=== PATIENT | female | born 1995 | race Caucasian/White ===

== ENCOUNTER 2017-11-18 08:07 | Emergency (ER) | payer OTHER, SELFPAY ==
--- NOTE | 2017-11-18 08:35 | ER ---
Nurse's Notes [facility] Name: Cecelia Coon Age: 22 yrs Sex: Female : 1995 Arrival Date: 11/18/2017 Time: 08:11 Bed 19 Private MD: None, None Diagnosis: Dental caries, unspecified;Periapical abscess without sinus Presentation: 11/18 08:15 Presenting complaint: Patient states: toothache since last night and swelling to left aa5 jaw since this morning. Pt states "I took Ibuprofen 800 mg and some Amoxicillins yesterday". 08:15 Transition of care: patient was not received from another setting of care. Onset of aa5 symptoms was November 18, 2017. Risk Assessment: Do you want to hurt yourself or someone else? Patient reports no desire to harm self or others. Initial Sepsis Screen: Does the patient meet any 2 criteria? No. Patient's initial sepsis screen is negative. Does the patient have a suspected source of infection? No. Patient's initial sepsis screen is negative. Care prior to arrival: None. 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 - Social history:: Smoking status: Patient/guardian denies using tobacco. - Ebola Screening: : Patient denies travel to an Ebola-affected area in the 21 days before illness onset. Screenin:21 Abuse screen: Denies threats or abuse. Nutritional screening: No deficits noted. tw2 Tuberculosis screening: No symptoms or risk factors identified. Fall Risk None identified. Assessment: 08:20 General: Appears uncomfortable, Behavior is calm, cooperative. Pain: Complains of pain aa5 in left jaw Pain does not radiate. Pain currently is 8 out of 10 on a pain scale. Quality of pain is described as pulsating, Pain began 1 day ago. Is continuous. Neuro: Level of Consciousness is awake, alert, obeys commands, Oriented to person, place, time, situation. Cardiovascular: Heart tones S1 S2 present Rhythm is regular. Respiratory: Airway is patent Respiratory effort is even, unlabored, Respiratory pattern is regular, symmetrical. GI: No signs and/or symptoms were reported involving the gastrointestinal system. : No signs and/or symptoms were reported regarding the genitourinary system. EENT: Reports left lower tooth pain . Derm: Skin is pink, warm \\T\\ dry. Musculoskeletal: Range of motion: intact in all extremities. 09:00 Reassessment: Patient is alert, oriented x 3, equal unlabored respirations, skin aa5 warm/dry/pink. Vital Signs: 08:15 BP 133 / 96; Pulse 71; Resp 18 S; Temp 99.1(O); Pulse Ox 98% on R/A; Weight 83.91 kg aa5 (R); Height 5 ft. 4 in. (162.56 cm) (R); Pain 8/10; 09:00 BP 132 / 92; Pulse 70; Resp 16 S; Pulse Ox 99% on R/A; Pain 8/10; aa5 08:15 Body Mass Index 31.75 (83.91 kg, 162.56 cm) aa5 ED Course: 08:11 Patient arrived in ED. mr 08:11 None, None is Private Physician. mr 08:15 Arm band placed on. aa5 08:17 Archana Lancaster, VERO is Primary Nurse. aa5 08:20 Grazyna Degroot [facility]C [facility]. snw 08:20 Rosalio Galvan MD is Attending Physician. snw 08:22 Bed in low position. Call light in reach. Adult w/ patient. Pulse ox on. NIBP on. tw2 08:23 Triage completed. aa5 09:05 No provider procedures requiring assistance completed. aa5 09:05 Patient did not have IV access during this emergency room visit. aa5 Administered Medications: 08:45 Drug: Clindamycin 600 mg {Note: 300mg given to right gluteus and 300mg given to left aa5 gluteus.} Route: IM; Site: right gluteus; 08:45 Drug: [place] 5 mg-325 mg 1 tabs Route: PO; aa5 Outcome: 08:34 Discharge ordered by . snw 09:04 Discharged to home ambulatory, with significant other. aa5 09:04 Condition: stable 09:04 Discharge instructions given to patient, Instructed on discharge instructions, follow up and referral plans. medication usage, Demonstrated understanding of instructions, follow-up care, medications, Prescriptions given X 3. 09:05 Patient left the ED. aa5 Signatures: Grazyna Degroot FNP-C REPLENISHMENT MERCHANDISING ASSOCIATE-Dena Shaw mr LancasterArchana, RN RN aa5 Bere Aguilera RN RN tw2 Corrections: (The following items were deleted from the chart) 08:22 Immunization history: Adult Immunizations [place] [id number] 08:22 Social history: Smoking status: [facility] 08 08:15 Presenting complaint: Patient states: toothache since last night and swelling to aa5 left jaw since this morning aa5
--- NOTE | 2017-11-18 08:35 | EDPHYS ---
Physician Documentation [facility] Name: Cecelia Coon Age: 22 yrs Sex: Female : 1995 Arrival Date: 11/18/2017 Time: 08:11 Bed 19 Private MD: None, None ED Physician Rosalio Galvan HPI: 11/18 08:40 This 22 yrs old Female presents to ER via Ambulatory with complaints of snw Abscess Tooth. 08:40 Onset: The symptoms/episode began/occurred suddenly, and became worse today. Associated snw signs and symptoms: The patient has no apparent associated signs or symptoms. Modifying factors: The patient symptoms are alleviated by nothing. It is unknown whether or not the patient has had similar symptoms in the past. The patient has not recently seen a physician. pt encouraged to f/u dentist AMELIA, list given. List of PCPs also given. 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 - Social history:: Smoking status: Patient/guardian denies using tobacco. - Ebola Screening: : Patient denies travel to an Ebola-affected area in the 21 days before illness onset. ROS: 08:38 Constitutional: Negative for fever, chills, and weight loss, Eyes: Negative for injury, snw pain, redness, and discharge, Neck: Negative for injury, pain, and swelling, Cardiovascular: Negative for chest pain, palpitations, and edema, Respiratory: Negative for shortness of breath, cough, wheezing, and pleuritic chest pain, Abdomen/GI: Negative for abdominal pain, nausea, vomiting, diarrhea, and constipation, Back: Negative for injury and pain, : Negative for injury, bleeding, discharge, and swelling, MS/Extremity: Negative for injury and deformity, Skin: Negative for injury, rash, and discoloration, Neuro: Negative for headache, weakness, numbness, tingling, and seizure. 08:38 ENT: Positive for dental pain, since last pm with edema to left jaw. Exam: 08:36 Constitutional: This is a well developed, well nourished patient who is awake, alert, snw and in no acute distress. 08:36 Eyes: Pupils equal round and reactive to light, extra-ocular motions intact. Lids and lashes normal. Conjunctiva and sclera are non-icteric and not injected. Cornea within normal limits. Periorbital areas with no swelling, redness, or edema. 08:36 Chest/axilla: Normal chest wall appearance and motion. Nontender with no deformity. No lesions are appreciated. Cardiovascular: Regular rate and rhythm with a normal S1 and S2. No gallops, murmurs, or rubs. Normal PMI, no JVD. No pulse deficits. Respiratory: Lungs have equal breath sounds bilaterally, clear to auscultation and percussion. No rales, rhonchi or wheezes noted. No increased work of breathing, no retractions or nasal flaring. Abdomen/GI: Soft, non-tender, with normal bowel sounds. No distension or tympany. No guarding or rebound. No evidence of tenderness throughout. Back: No spinal tenderness. No costovertebral tenderness. Full range of motion. MS/ Extremity: Pulses equal, no cyanosis. Neurovascular intact. Full, normal range of motion. Neuro: Awake and alert, GCS 15, oriented to person, place, time, and situation. Cranial nerves II-XII grossly intact. Motor strength 5/5 in all extremities. Sensory grossly intact. Cerebellar exam normal. Normal gait. Psych: Awake, alert, with orientation to person, place and time. Behavior, mood, and affect are within normal limits. 08:36 Head/face: Noted is swelling, that is moderate, that is severe, of the left jaw, of the no trismus. 08:36 ENT: TM's: are normal, Nose: is normal, Mouth: is normal, Dental exam: dental caries, pain, that is severe, specifically in the lower left first molar (#19), under silver cap. 08:36 Skin: Appearance: Color: pale, areas to right arm with ecchymosis. Vital Signs: 08:15 BP 133 / 96; Pulse 71; Resp 18 S; Temp 99.1(O); Pulse Ox 98% on R/A; Weight 83.91 kg aa5 (R); Height 5 ft. 4 in. (162.56 cm) (R); Pain 8/10; 09:00 BP 132 / 92; Pulse 70; Resp 16 S; Pulse Ox 99% on R/A; Pain 8/10; aa5 08:15 Body Mass Index 31.75 (83.91 kg, 162.56 cm) aa5 MDM: 08:21 Patient medically screened. snw 08:39 Data reviewed: vital signs, nurses notes. Data interpreted: Pulse oximetry: on room air snw is 98 %. Interpretation: normal. Counseling: I had a detailed discussion with the patient and/or guardian regarding: the historical points, exam findings, and any diagnostic results supporting the discharge/admit diagnosis, the presence of at least one elevated blood pressure reading (>120/80) during this emergency department visit, the need for outpatient follow up, for definitive care, to return to the emergency department if symptoms worsen or persist or if there are any questions or concerns that arise at home. Special discussion: I have referred the patient to see his PCP for further evaluation of high blood pressure. I discussed in detail with the patient the higher chance of wound infection based on his presenting history. Based on the history and exam findings, there is no indication for further emergent testing or inpatient evaluation. I discussed with the patient/guardian the need to see a dentist for further evaluation of the symptoms. I discussed with the patient/guardian the need to see the primary care provider for further evaluation of the symptoms. Administered Medications: 08:45 Drug: Clindamycin 600 mg {Note: 300mg given to right gluteus and 300mg given to left aa5 gluteus.} Route: IM; Site: right gluteus; 08:45 Drug: [place] 5 mg-325 mg 1 tabs Route: PO; aa5 Disposition: 18 08:34 Discharged to Home. Impression: Dental caries, unspecified, Periapical abscess without sinus. - Condition is Stable. - Discharge Instructions: Dental Abscess, Dental Pain, Root Canal Treatment, Diet and Dental Disease. - Prescriptions for Clindamycin HCl 150 mg Oral Capsule - take 1 capsule by ORAL route every 6 hours for 10 days; 40 capsule. Diclofenac Sodium 75 mg Oral Tablet Sustained Release - take 1 tablet by ORAL route 2 times per day; 30 tablet. chlorhexidine gluconate 0.12 % Mucous Membrane mouthwash - place 15 milliliter by MUCOUS MEMBRANE route 2 times per day after brushing teeth, swish in mouth for 30 seconds then spit out; 480 milliliter. - Medication Reconciliation Form, Thank You Letter, Antibiotic Education, Prescription Opioid Use form. - Follow up: Private Physician; When: 2 - 3 days; Reason: Worsening of condition. Addendum: 11/20/2017 06:18 Co-signature as Attending Physician, Rosalio Galvan MD. g s Signatures: Grazyna Degroot, WET PRESS TENDER-C WET PRESS TENDER-Csnw Archana Lancaster RN RN aa5 Bere Aguilera RN RN tw2 Rosalio Galvan MD MD Corrections: (The following items were deleted from the chart) 11/18 08:25 08:22 Immunization history: Adult Immunizations [place] [id number] 08: 08:22 Social history: Smoking status: [place] [id number] 08:34 08:34 11/18/2017 08:34 Discharged to Home. Impression: Dental caries, unspecified. snw Condition is Stable. Forms are Medication Reconciliation Form, Thank You Letter, Antibiotic Education, Prescription Opioid Use. Follow up: Private Physician; When: 2 - 3 days; Reason: Worsening of condition. snw 09:05 08:34 11/18/2017 08:34 Discharged to Home. Impression: Dental caries, unspecified; aa5 Periapical abscess without sinus. Condition is Stable. Discharge Instructions: Dental Abscess, Dental Pain, Root Canal Treatment, Diet and Dental Disease. Prescriptions for Clindamycin HCl 150 mg Oral Capsule - take 1 capsule by ORAL route every 6 hours for 10 days; 40 capsule, Diclofenac Sodium 75 mg Oral Tablet Sustained Release - take 1 tablet by ORAL route 2 times per day; 30 tablet. and Forms are Medication Reconciliation Form, Thank You Letter, Antibiotic Education, Prescription Opioid Use. Follow up: Private Physician; When: 2 - 3 days; Reason: Worsening of condition. snw
[2017-11-18] MEDS ORDERED: HYDROCODONE/APAP 5/325 MG TAB ONE (08:40)
[2017-11-18] MEDS ORDERED: CLINDAMYCIN IV 150 MG/ML (4 mL) VIAL ONE (08:42)
[2017-11-18 09:10] VITALS: TEMP 99.1
[2017-11-18 09:11] VITALS: BP 132/92; O2SAT 99
== END 2017-11-18 09:05 | disposition home or self-care (01) ==
LOC: ER 08:07
DX: K02.9 Dental caries, unspecified (principal); K04.7 Periapical abscess without sinus
CPT/HCPCS: 96372; 99283; S0077

== ENCOUNTER 2021-06-23 15:50 | Inpatient (IN) | payer OTHER, SELFPAY ==
--- OUTSIDE RECORDS SUMMARY | 2021-06-23 15:54 | XMS REPORT | Continuity of Care Document ---
:1995 Author Organization [facility] t Address [address] [place] [address] Care Team Providers Name Role Phone Agdigna Attending Clinician Unavailable [email or web address] Attending Clinician Unavailable DARRON BARNEY Attending Clinician Unavailable MARLENI CONDE Attending Clinician Unavailable Jennifer Rodriguez Attending Clinician Unavailable Randy Munguia Attending Clinician Unavailable EDDOC, FOR EDM Attending Clinician Unavailable JOVANI S Attending Clinician Unavailable Valentino HAGAN Attending Clinician Unavailable JOANNE Attending Clinician Unavailable Vick CGC Attending Clinician Unavailable TU Attending Clinician Unavailable William ALDRICH Attending Clinician Unavailable William Cedillo Attending Clinician Devora BELLO Attending Clinician Unavailable MARLENI CONDE Admitting Clinician Unavailable Physician, Primary or Family Admitting Clinician Unavailabl e Payers Payer Name Policy Type Policy Number Effective Date Expiration Date S ource [employer] [place] P [id number] 2018 2018 Womens Presumptive 00:00:00 00:00:00 (HTW) [facility] MEDICAID STAR [id number] 2019 00:00:00 [facility] [id number] 2019 CHOICE STAR 00:00:00 [facility] [id number] 2017 CHOICE MEDICAID 00:00:00 Problems This patient has no known problems. Allergies, Adverse Reactions, Alerts Allergy Allergy Status Severity Reaction(s) Onset Inactive Treating Comm ents Source Name Type Date Date Clinician No Known DA Active U NONE 2020-05 [facility] 06-24 [place] [facility] 00:00: [address] No Known DA Active U NONE 2020-05 [facility] 05-26 [place] All[facility]ie 00:00: [address] NO KNOWN Drug Active Univers ALLERGIE Class ity of S [facility] Social History Social Habit Start Date Stop Date Quantity Comments Source Sex Assigned At [birth year] [facility] 00:00:00 00:00:00 Smoking Status Start Date Stop Date Source Unknown if ever smoked [facility] Medications This patient has no known medications. Procedures This patient has no known procedures. Encounters Start End Encounter Admission Attending Care Care Encounter Source Date/Time Date/Time Type Type Clinicians Facility Department ID 2021-05-30 Outpatient [facility] [id number] 11:30:43 Ko Baez [place] 2021-05-30 Outpatient [facility] [id number] 11:27:49 Ko Wheat22 [place] 2021-02-15 Outpatient .geno [facility] [id number] [place] 16:54:25 [id number] [facility]ly [facility] 2020-10-26 [facility] [id number] ID 01:04:52 [facility] 2020-09-24 Inpatient [facility] [id number] [facility] 10:00:00 2020-09-09 Outpatient [facility] [id number] ID 04:19:35 [facility] 2021-04-23 2021-04-25 Emergency EM [place], Cathy [facility] ANTHONY [id number] [facility] 23:42:00 14:04:00 [id number] [facility] 2021-04-23 2021-04-23 Emergency EM Michael, Cathy [facility] [id number] [facility] 23:42:00 23:42:00 86 [facility] 2021-03-26 2021-03-26 Emergency EM Ra Munguian [facility] [id number] [facility] 11:09:00 12:56:00 [id number] [facility] 2021-03-26 2021-03-26 Emergency EM EDDOC, [facility] [id number] [facility] 11:09:00 12:56:00 GENERIC 86 [facility] 2020-12-22 2020-12-22 [facility] [id number] [place] 00:00:00 00:00:00 [facility] 2020-12-06 2020-12-14 [facility] [id number] [place] 14:15:00 16:26:00 [facility] 2020-12-11 2020-12-11 Outpatient [facility] [id number] [place] 14:44:25 23:59:00 [facility] 2020-12-08 2020-12-08 Outpatient [facility] [id number] [place] 14:55:13 23:59:00 [facility] 2020-12-08 2020-12-08 Outpatient [facility] [id number] [place] 14:48:37 13:29:00 [facility] 2020-12-07 2020-12-07 Outpatient [facility] [id number] [place] 12:55:27 23:59:00 [facility] 2020-12-07 2020-12-07 Outpatient [facility] [id number] [place] 13:17:47 09:54:00 [facility] 2020-12-05 2020-12-06 [facility] [id number] [place] 04:32:00 14:09:00 [facility] Liz 2020-12-04 2020-12-04 Telephone Vick, CK [id number] ID 00:00:00 00:00:00 Batsheva ZELAYA [id number] H [facility] MEDICAL [id number] [facility] [id number] 2020-09-14 2020-09-14 Telephone Vick, CK [id number] ID 00:00:00 00:00:00 Batsheva ZELAYA [id number] [facility] [id number] [facility] [id number] 2020-07-02 2020-07-02 Emergency WENDY BORGES [facility] [id number] [place] 00:00:00 00:00:[address] 2019-09-01 2019-09-01 Outpatient [facility] [id number] [place] 00:00:00 00:00:00 2019-09-01 2019-09-01 Outpatient [facility] [id number] [place] 00:00:00 00:00:00 Health 2019-08-18 2019-08-18 Outpatient [facility] [id number] [place] 00:00:00 00:00:00 2019-08-18 2019-08-18 Outpatient [facility] [id number] [place] 00:00:00 00:00:00 Health 2019-08-11 2019-08-11 Outpatient [facility] [id number] [place] 00:00:00 00:00:00 Health 2019-08-09 2019-08-09 Outpatient [facility] [id number] [place] 09:36:22 09:36:22 Health 2019-08-09 2019-08-09 Outpatient [facility] [id number] [place] 00:00:00 00:00:00 Health 2019-08-04 2019-08-04 Outpatient [facility] [id number] [place] 14:35:37 14:35:37 Health 2019-08-04 2019-08-04 Outpatient [facility] [id number] [place] 13:02:27 13:02:27 Health 2019-08-04 2019-08-04 Outpatient [facility] [id number] [place] 11:03:29 11:03:29 Health 2019-08-04 2019-08-04 Outpatient [facility] [id number] [place] 08:55:32 08:55:32 Health 2019-08-04 2019-08-04 Outpatient [facility] [id number] [place] 08:20:18 08:20:18 Health 2019-08-04 2019-08-04 Outpatient [facility] [id number] [place] 00:00:00 00:00:00 Health 2019-08-04 2019-08-04 Outpatient [facility] [id number] [place] 00:00:00 00:00:00 Health 2019-08-04 2019-08-04 Outpatient [facility] [id number] [place] 00:00:00 00:00:00 Health 2019-07-22 2019-07-22 Outpatient Valentino ALDRICH [facility] [id number] Univers 11:00:00 11:00:00 LANEY [id number] itaisha o f [facility] 2019-07-22 2019-07-22 Outpatient R MADIEPE, [facility] [id number] Univers 11:00:00 11:00:00 LANEY georges o f [facility] 2019-07-19 2019-07-19 Emergency [facility] [id number] [place] 11:11:53 11:11:53 Health 2019-07-16 2019-07-16 Outpatient [facility] [id number] Univers 07:45:00 07:45:00 [id number] [facility] 2019-07-12 2019-07-12 [facility] [id number] 00:00:00 00:00:00 Laney Thomas HONEY LIQUEFIER [id number] REGIONAL [id number] MATERNAL [id number] & CHILD 107 [facility] 2019-07-09 2019-07-09 [facility] [id number] 00:00:00 00:00:00 Laney Thomas HONEY LIQUEFIER [id number] [facility] [id number] MATERNAL [id number] & CHILD 107 [facility] 2019-07-08 2019-07-08 Outpatient R MADIEPE, [facility] [id number] Univers 14:00:00 14:00:00 LANEY itaisha o devora [facility] 2019-07-08 2019-07-08 Outpatient R MADIEPE, [facility] [id number] Univers 14:00:00 14:00:00 LANEY georges o f [facility] 2019-06-30 2019-06-30 Outpatient P ACE, [facility] [id number] Univers 13:00:00 13:00:00 ALEJANDRA [facility] 2018-08-24 2018-08-24 Emergency [facility] [id number] [place] 17:25:07 17:25:07 Health Results Test Description Test Time Test Comments Results Result Comments Source COVID 19 INHOUSE AG 2021-04-24 11:14:00 Test Item Value Reference Range Interpretation Comme nts COVID 19 INHOUSE AG (test code = [id number]) Negative Neg [id number] 02:04:00 Test Item Value Reference Range Interpretation Comments MAGNESIUM (test code = MAG) 2.0 MG/DL 1.6-2.6 N BASIC METABOLIC [id number] 01:25:00 Test Item Value Reference Range Interpretation Comments SODIUM (test code = 135.0 mmol/L 133-144 N NA) POTASSIUM (test 4.2 mmol/L 3.5-5.1 N code = K) CHLORIDE (test code 107 mmol/L 95-105 H = CL) CARBON DIOXIDE 19 mmol/L 21-32 L (test code = CO2) ANION GAP (test 9.0 GAP calc 4.0-15.0 N code = GAP) GLUCOSE (test code 100 MG/DL 70-110 N = GLU) BLOOD UREA NITROGEN 19 MG/DL 7-18 H (test code = BUN) CREATININE (test 0.66 MG/DL 0.55-1.30 N Results may be code = CREAT) depressed if p atient is takingN-Acetylc ystei ne (NAC) and Metamizole (Dipyrone). CALCIUM (test code 9.0 MG/DL 8.5-10.1 N = CA) INDEX HEMOLYSIS 4 SMALL 50-200 See_Comment A [Automate d message] (test code = MG Index/DL The system [employer] HEMIND[employer]Wed (Formerly [employer])) generated this result transmit theron reference range : 1 NORMAL. The reference range was not used to interpret this result as normal/abnormal . INDEX ICTERIC (test 1 NORMAL <2 MG See_Comment [Auto mated message] code = ICTINDEX) Index/DL The system which generated this result transmit theron reference range : 1 NORMAL. The reference range was not used to interpret this result as normal/abnormal . INDEX LIPEMIA (test 1 NORMAL <50 MG See_Comment [Aut omated message] code = LIPINDEX) Index/DL The system which generated this result transmit theron reference range : 1 NORMAL. The reference range was not used to interpret this result as normal/abnormal . HEPATIC FUNCTION [id number] 01:25:00 Test Item Value Reference Range Interpretation Comments TOTAL PROTEIN (test code = PROT) 8.9 G/DL 6.4-8.2 H ALBUMIN (test code = ALB) 4.2 G/DL 3.4-5.0 N BILIRUBIN TOTAL (test code = BILT) 0.80 MG/DL 0.00-1.00 N BILIRUBIN DIRECT (test code = 0.15 MG/DL 0.00-0.30 N BILD) BILIRUBIN INDIRECT (test code = 0.65 MG/DL 0.2-1.3 N BILIND) SGOT/AST (test code = AST) 108 Unit/L 15-37 H SGPT/ALT (test code = ALT) 103 Unit/L 12-78 H ALKALINE PHOSPHATASE TOTAL (test 100 Unit/L 45-117 N code = ALKP) [id number] 01:25:00 Test Item Value Reference Range Interpretation Comments ACETAMINOPHEN (test code = ACET) <2.0 mcG/ML 10.0-30.0 L [id number] 01:25:00 Test Item Value Reference Range Interpretation Comments ALCOHOL (test code = < 3 MG/DL 0-10 N MEDICAL ALCOHOL ALC) RESULTS. SITE W PREPPED WITH BE TADINE. <10 MG/DL ARE CONSIDERED NEGA TIVE. >400 MG/DL MAY BE FATAL.RESULTS F OR MEDICAL USE ONL Y. NOT TO BE USED FOR FORENSIC PURPOSES. [id number] 00:55:00 Test Item Value Reference Range Interpretation Comments SALICYLATE (test code 1.9 MG/DL See_Comment L RESULT <2.8 IS = SABINE) CONSIDERED NEGA TIVE FOR SALICYLATE. [Automated mess age] The system [employer] generated this result transmitted ref erence range: 2.8-20.0 THER. The reference r crystal was not used to interpret this result as normal/abnor mal. CBC W/AUTO [id number] 00:51:00 Test Item Value Reference Range Interpretation Comments WHITE BLOOD CELL (test code = 8.1 K/mm3 4.1-12.1 N WBC) RED BLOOD CELL (test code = RBC) 4.97 M/mm3 3.8-5.5 N HEMOGLOBIN (test code = HGB) 14.1 G/DL 10.6-15.8 N HEMATOCRIT (test code = HCT) 41.3 % 31.8-47.4 N MEAN CELL VOLUME (test code = 83.1 fL 80.1-101.1 N MCV) MEAN CELL HGB (test code = MCH) 28.4 pg 25.3-35.3 N MEAN CELL HGB CONCETRATION (test 34.1 G/DL 32.7-35.1 N code = MCHC) RED CELL DISTRIBUTION WIDTH 14.1 % 12.2-16.4 N (test code = RDW) RED CELL DISTRIBUTION WIDTH 40.7 fL 36.4-46.3 N (test code = RDW-SD) PLATELET COUNT (test code = PLT) 370 K/mm3 155-337 H MEAN PLATELET VOLUME (test code 10.0 fL 6.8-11.2 N = MPV) GRANULOCYTE % (test code = GR%) 57.0 % 37.8-82.6 N IMMATURE GRANULOCYTE % (test 0.4 % 0.0-2.0 N code = IG%) LYMPHOCYTE % (test code = LY%) 32.8 % 14.1-45.4 N MONOCYTE % (test code = MO%) 8.4 % 2.5-11.7 N EOSINOPHIL % (test code = EO%) 1.0 % 0.0-6.2 N BASOPHIL % (test code = BA%) 0.4 % 0.0-2.1 N NUCLEATED RBC % (test code = 0.0 /100WBC% 0.0-1.0 N NRBC%) GRANULOCYTE # (test code = GR#) 4.63 k/mm3 2.0-13.7 N IMMATURE GRANULOCYTE # (test 0.03 K/mm3 0.00-0.03 N code = IG#) LYMPHOCYTE # (test code = LY#) 2.66 K/mm3 0.6-3.8 N MONOCYTE # (test code = MO#) 0.68 K/mm3 0.11-0.59 H EOSINOPHIL # (test code = EO#) 0.08 K/mm3 0.0-0.4 N BASOPHIL # (test code = BA#) 0.03 K/mm3 0.0-0.1 N NUCLEATED RBC # (test code = 0.00 K/mm3 0.0-0.05 N NRBC#) URINALYSIS [id number] 00:42:00 Test Item Value Reference Range Interpretation Comments UA COLOR (test code = YELLOW DESCRIPT YELLOW COLU) UA APPEARANCE (test TURBID CLEAR A code = APPU) (1+)HAZY-CLDY DESCRIPT UA GLUCOSE DIPSTICK NORMAL (0) See_Comment [Automa theron (test code = DGLUU) mg/dL message] The system which generated this result transmit theron reference range : 0 (NORMAL). The reference range was not used to interpret this result as normal/abnormal . UA BILIRUBIN DIPSTICK NEGATIVE (0.0) See_Comment [Au tomated (test code = BILU) mg/dL message] The system which generated this result transmit theron reference range : (NEG) 0. The reference range was not used to interpret this result as normal/abnormal . UA KETONE DIPSTICK 60 (2+) mg/dL See_Comment A [Automa theron (test code = KETU) message] The system which generated this result transmit theron reference range : (NEG) 0. The reference range was not used to interpret this result as normal/abnormal . UA SPECIFIC GRAVITY 1.035 SG 1.001-1.035 (test code = SGU) UA BLOOD DIPSTICK 0.03 (TRACE) See_Comment A [Automate d (test code = ANNIE) mg/dL message] T he system which generated this result transmit theron reference range : 0 (NEG). The reference range was not used to interpret this result as normal/abnormal . UA PH DIPSTICK (test 5.5 pH UNITS 4.6-8.0 code = NIRANJAN) UA PROTEIN DIPSTICK 30 (1+) mg/dL See_Comment A [Autom ated (test code = PROU) message] The system which generated this result transmit theron reference range : <30 (1+). The reference range was not used to interpret this result as normal/abnormal . UA UROBILINIOGEN 2 (1+) mg/Dl See_Comment A [Automated DIPSTICK (test code = messag e] The URO) system which generated this result transmit theron reference range : <2.0 (1+). The reference range was not used to interpret this result as normal/abnormal . UA NITRITE DIPSTICK NEGATIVE (0) NEG (test code = TERI) SCREEN UA LEUKOCYTE ESTERASE NEGATIVE (0) See_Comment [Auto mated DIPSTICK (test code = Leuk/mcL messag e] The LEUU) system which generated this result transmit theron reference range : (NEG) 0. The reference range was not used to interpret this result as normal/abnormal . UA WBC (test code = 0-3 #WBC/HPF 0-3 WBCU) UA RBC (test code = 0-3 #RBC/HPF 0-3 RBCU) UA BACTERIA (test MODERATE >5 NONE-FEW A code = BACU) /HPF UA SQUAMOUS CELLS MODERATE >10 NONE-SQepi (test code = SQU) /UL UA TRANSITIONAL CELLS RARE >0 #/HPF NONE (test code = TRANU) UA HYALINE CAST (test 10-20 #/LPF 0-3 A code = HYALU) UA MUCUS (test code = MANY /LPF NONE A MUCU) UA AMORPHOUS SEDIMENT RARE >0 #/mcL NONE-FEW (test code = AMORU) DRUGS OF ABUSE SCREEN [id number] 00:42:00 Test Item Value Reference Interpretation Comments Range URN COCAINE (test NONE DETECTED See_Comment [Automat ed message] The code = COCAURN) (NEG) system which generated SCcutoff this result tra nsmitted reference range : <300 NG/ML. The refe rence range was not u sed to interpret this result as normal/abnormal . URN CANNABINOIDS POSITIVE See_Comment A [Automated message] The (test code = SCcutoff system which ge nerated CANNABURN) this result tra nsmitted reference range : <50 NG/ML. The refe rence range was not u sed to interpret this result as normal/abnormal . URN AMPHETAMINE POSITIVE See_Comment A [Automated message] The (test code = SCcutoff system which ge nerated AMPHETURN) this result tra nsmitted reference range : <1000 NG/ML. The refe rence range was not u sed to interpret this result as normal/abnormal . URN BARBITURATE NONE DETECTED See_Comment [Automated message] The (test code = (NEG) system which ge nerated BARBITURN) SCcutoff this result tra nsmitted reference range : <200 NG/ML. The refe rence range was not u sed to interpret this result as normal/abnormal . URN BENZODIAZEPINE NONE DETECTED See_Comment [Automa theron message] The (test code = (NEG) system which ge nerated BENZOURN) SCcutoff this result tra nsmitted reference range : <200 NG/ML. The refe rence range was not u sed to interpret this result as normal/abnormal . URN OPIATES (test NONE DETECTED See_Comment [Automat ed message] The code = OPIATURN) (NEG) system whic h generated SCcutoff this result tra nsmitted reference range : <300 NG/ML. The refe rence range was not u sed to interpret this result as normal/abnormal . URN PHENCYCLIDINE NONE DETECTED See_Comment ------ Fo r all drug (PCP) (test code = (NEG) screen an alytes PHENCURN) SCcutoff ------The scree n method provides only a preliminary analyticaltest result. A more specific alternate chemi kevin method mustbe u sed in order to obtain a confirmed jeniffer tical result.Gas chromatography/ mass spectrometry (G C/MS) is thepreferred confirmatory me thod. Other chemical confirmationmet hods are available. Clin ical consideration andprofessional judgement shoul d be applied to any drug ofabuse test re sult, particularly wh en preliminary positiveresults are used. [Automate d message] The sy stem which generated this result transmit theron reference range : <25 NG/ML. The refe rence range was not u sed to interpret this result as normal/abnormal . UR HCG [id number] 00:36:00 Test Item Value Reference Range Interpretation Comments UR HCG QUAL (test NEGATIVE NEG Very dilut e urines with a code = HCGQLU) low specific gravity may notcontain repr esentative levels of hCG. - XR CHEST 2 [id number] 12:25:00 [facility] : 1995 Sex: F FAX: Jose Sparks PAPIER MACHE MOLDER [phone] [place]: E St: PRE Patient Name: LEROY DOZIER Unit No: [id number] EXAMS: CPT CODE: [id number] XR CHEST 2 V 74315 Chest 2 views 03/26/2021 12:25 PM CLINICAL HISTORY: Cough COMPARISON: None available L OCATION: W1 FINDINGS: The lungs are clear. Cardiomediastinal contours are within normal limits. The central pulmonary vasculature is not engorged. The visualized skeleton is intact. IMPRESSION: No acute radiographic a bnormalities. at 1225 Reported and signed by: Roger Shaikh MD CC: Jose Sparks Dictated Date/Time: 03/26/2021 ([id number])Technologist: Falguni Villatoro Transcribed Date/Time: 03/26/2021 ([id number]) By: [email or web address] Orig Print D/T: S: 03/26/2021 ([id number]) AMPARO Christine NAME: LEROY DOZIER [address] [place] [address] PHYS: TONYA Jose [place], [place] [address] : 1995 AGE: 25 SEX: F LOC: B.ERS PHONE #: [phone] EXAM DATE: 03/26/2021 STATUS: PRE ER FAX #: [phone] RAD NO: DC Dt: PAGE 1 Signed ReportCOVID 19 INHOUSE [id number] 12:24:00 Test Item Value Reference Range Interpretation Comments COVID 19 INHOUSE AG (test code = Negative Neg [id number])
[2021-06-23] MEDS ORDERED: LORazepam 2 MG/ML VIAL ONE ×3 (16:05→21:21)
[2021-06-23] MEDS ORDERED: NA CHLORIDE 0.9% 1,000 ML ONE (16:05)
[2021-06-23 16:20] LABS: Hematocrit 39.2 % (36.0-45.0); RBC Red Blood Cell Count 4.65 M/uL (3.86-4.86)
[2021-06-23 16:21] LABS: Absolute Lymphocytes (CBC) 2.8 K/uL (0.7-4.9); Lymphocytes % 44.7 % (15.3-44.8)
[2021-06-23 16:54] LABS: ALT/SGPT 69 U/L (12-78); Albumin 3.4 g/dL (3.4-5.0); Alkaline Phosphatase 81 U/L (45-117); BUN Blood Urea Nitrogen 11 mg/dL (7-18); Bicarbonate 19 mmol/L (21-32); Bilirubin Direct 0.1 mg/dL (0-0.2); Bilirubin Total 0.7 mg/dL (0.2-1.0); Glucose Level 126 mg/dL (74-106); Protein, Total 7.4 g/dL (6.4-8.2); Sodium Level 139 mmol/L (136-145)
[2021-06-23 16:55] LABS: AST/SGOT 47 U/L (15-37); Potassium 3.3 mmol/L (3.5-5.1)
[2021-06-23] MEDS ORDERED: MAGNESIUM SULFATE 1 gm IVPB 1 GM/100 ML BAG IV ONE ×2 (17:11→18:27)
--- NOTE | 2021-06-23 17:14 | EDPHYS ---
Physician Documentation [facility] Name: Cecelia Coon Age: 26 yrs Sex: Female : 1995 Arrival Date: 06/23/2021 Time: 15:54 Bed 3 Private MD: ED Physician Tim Gross HPI: 06/23 16:23 This 26 yrs old Female presents to ER via EMS with complaints of Suicidal Ideation, jr8 Overdose. 16:23 Associated signs and symptoms: Pertinent positives; anxiety, depression, suicide jr8 ideation. Severity of symptoms: At their worst the symptoms were moderate. The patient has experienced a previous episode. The patient has not recently seen a physician. This is a 26-year-old female who presented to the emergency room via EMS after calling EMS for overdose. Patient stated that she took approximately 30 to 40, 200 mg Seroquel's. She has attempted this once before several years ago when she became very depressed. Today she did the same thing after she could not handle family issues. Denies take any other medication at this time. Patient tachycardic upon arrival and agitated.. 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 - Social history:: Smoking status: Patient reports the use of cigarette tobacco products, smokes one pack cigarettes per day. ROS: 16:23 Eyes: Negative for injury, pain, redness, and discharge, ENT: Negative for injury, jr8 pain, and discharge, Neck: Negative for injury, pain, and swelling, Cardiovascular: Negative for chest pain, palpitations, and edema, Respiratory: Negative for shortness of breath, cough, wheezing, and pleuritic chest pain, Abdomen/GI: Negative for abdominal pain, nausea, vomiting, diarrhea, and constipation, Back: Negative for injury and pain, MS/Extremity: Negative for injury and deformity, Skin: Negative for injury, rash, and discoloration, Neuro: Negative for headache, weakness, numbness, tingling, and seizure. 16:23 Psych: Positive for anxiety, depression, suicide gesture, suicidal ideation. Exam: 16:23 Eyes: Pupils equal round and reactive to light, extra-ocular motions intact. Lids and jr8 lashes normal. Conjunctiva and sclera are non-icteric and not injected. Cornea within normal limits. Periorbital areas with no swelling, redness, or edema. ENT: Nares patent. No nasal discharge, no septal abnormalities noted. Tympanic membranes are normal and external auditory canals are clear. Oropharynx with no redness, swelling, or masses, exudates, or evidence of obstruction, uvula midline. Mucous membranes moist. Neck: Trachea midline, no thyromegaly or masses palpated, and no cervical lymphadenopathy. Supple, full range of motion without nuchal rigidity, or vertebral point tenderness. No Meningismus. Respiratory: Lungs have equal breath sounds bilaterally, clear to auscultation and percussion. No rales, rhonchi or wheezes noted. No increased work of breathing, no retractions or nasal flaring. Abdomen/GI: Soft, non-tender, with normal bowel sounds. No distension or tympany. No guarding or rebound. No evidence of tenderness throughout. Back: No spinal tenderness. No costovertebral tenderness. Full range of motion. Skin: Warm, dry with normal turgor. Normal color with no rashes, no lesions, and no evidence of cellulitis. MS/ Extremity: Pulses equal, no cyanosis. Neurovascular intact. Full, normal range of motion. Neuro: Awake and alert, GCS 15, oriented to person, place, time, and situation. Cranial nerves II-XII grossly intact. Motor strength 5/5 in all extremities. Sensory grossly intact. Cerebellar exam normal. Normal gait. 16:23 Cardiovascular: Rate: tachycardic, Rhythm: regular, Pulses: Pulses are 2+ in right radial artery and left radial artery. Heart sounds: normal, normal S1and S2, no S3 or S4, no murmur, no rub, no gallop, Edema: is not appreciated, JVD: is not appreciated. 16:23 Psych: Behavior/mood is cooperative, anxious, Affect is calm, Oriented to person, place, time, Patient having thoughts of suicide. Plan for suicide is see hpi Memory is normal. Delusions/hallucinations are not present. Vital Signs: 15:54 BP 155 / 140; Pulse 168; Resp 24; Temp 97.8; Pulse Ox 100% ; jl7 16:12 Pulse 119; Resp 22 S; Pulse Ox 100% on R/A; jd3 16:14 Weight 72.57 kg; Height 5 ft. 4 in. (162.56 cm); jl7 17:09 BP 117 / 86; Pulse 131; Resp 15; Pulse Ox 100% ; jl7 17:15 BP 118 / 90; Pulse 123; Resp 18 S; Pulse Ox 100% on R/A; jg9 17:45 BP 90 / 59; Pulse 160; Resp 27 S; Pulse Ox 100% on R/A; jg9 18:00 BP 106 / 71; Pulse 144; Resp 17 S; Pulse Ox 97% on R/A; jg9 18:15 BP 115 / 99; Pulse 160; Resp 14 S; Pulse Ox 100% on R/A; jg9 19:37 BP 99 / 67; Pulse 140; Resp 17 S; Pulse Ox 97% on R/A; as6 16:14 Body Mass Index 27.46 (72.57 kg, 162.56 cm) jl7 MDM: 15:54 Patient medically screened. jr8 16:21 Data reviewed: vital signs, nurses notes, lab test result(s), EKG. ED course: Spoke jr8 with [employer] control. Number [id number]. Advised to prophylactically give mag do to the tachycardia and borderline QTc. Will admit for obs . 17:10 Data interpreted: index clerk: rate is 128 beats/min, rhythm is sinus tachycardia, jr8 with no ectopy, Interpretation: tachycardia. Counseling: I had a detailed discussion with the patient and/or guardian regarding: the historical points, exam findings, and any diagnostic results supporting the discharge/admit diagnosis, lab results, radiology results, the need for further work-up and treatment in the hospital. 06/23 15:57 Order name: Acetaminophen; Complete Time: 17:07 rn 06/23 15:57 Order name: Basic Metabolic Panel; Complete Time: 17:07 rn 06/23 15:57 Order name: CBC with Diff; Complete Time: 16:28 rn 06/23 15:57 Order name: ETOH Level; Complete Time: 17:07 rn 06/23 15:57 Order name: Hepatic Function; Complete Time: 17:07 rn 06/23 15:57 Order name: PT-INR; Complete Time: 16:45 rn 06/23 15:57 Order name: Ptt, Activated; Complete Time: 16:45 rn 06/23 15:57 Order name: Salicylate; Complete Time: 16:45 rn 06/23 15:57 Order name: Urine Drug Screen; Complete Time: 22:39 rn 06/23 16:20 Order name: Magnesium; Complete Time: 17:50 rn 06/23 16:21 Order name: SARS-COV-2 RT PCR (Document "Date of Onset" if Symptomatic); Complete Time: jr8 17:50 06/23 20:19 Order name: Salicylate 8 06/23 22:14 Order name: Urine Dipstick-Ancillary; Complete Time: 22:39 EDMS 06/23 15:57 Order name: EKG; Complete Time: 15:58 rn 06/23 17:25 Order name: Regular EDMS 06/24 00:31 Order name: Salicylates Level; Complete Time: 00:53 EDMS 06/24 04:14 Order name: CBC with Automated Diff; Complete Time: 16:15 EDMS 06/24 04:22 Order name: Comprehensive Metabolic Panel; Complete Time: 16:15 EDMS 06/25 05:29 Order name: CBC with Automated Diff; Complete Time: 01:34 EDMS 06/25 05:56 Order name: Comprehensive Metabolic Panel; Complete Time: 01:34 EDMS 06/23 15:57 Order name: EKG - Nurse/Tech; Complete Time: 16:52 rn 06/23 15:57 Order name: IV Saline Lock; Complete Time: 16:53 rn 06/23 15:57 Order name: Labs collected and sent; Complete Time: 16:53 rn 06/23 15:57 Order name: Suicide Precautions; Complete Time: 16:53 rn 06/23 15:57 Order name: Suicide Screening ([place]); Complete Time: 17:21 rn 06/23 15:57 Order name: Urine Dipstick-Ancillary (obtain specimen); Complete Time: 22:16 rn 06/23 17:25 Order name: EKG Electrocardiogram; Complete Time: 17:36 EDMS 06/23 17:25 Order name: EKG Electrocardiogram; Complete Time: 17:36 EDMS Administered Medications: 16:15 Drug: NS 0.9% 1000 ml Route: IV; Rate: 1000 ml; Site: left antecubital; jl7 18:00 Follow up: IV Status: Completed infusion; IV Intake: 1000ml j9 16:15 Drug: NS 0.9% 1000 ml Route: IV; Rate: 1000 ml; Site: left antecubital; jl7 18:30 Follow up: IV Status: Completed infusion; IV Intake: 1000ml j9 16:15 Drug: Ativan (LORazepam) 1 mg Route: IVP; Site: left antecubital; jl7 17:16 Follow up: Response: No adverse reaction; Anxiety decreased j9 18:29 Follow up: Response: RASS: Light sedation (-2) j9 16:45 Drug: Ativan (LORazepam) 1 mg Route: IVP; Site: left antecubital; jl7 17:16 Follow up: Response: No adverse reaction; Anxiety decreased j9 18:29 Follow up: Response: RASS: Light sedation (-2) j9 17:16 Drug: Magnesium Sulfate 1 grams Route: IVPB; Infused Over: 1 hrs; Site: left forearm; j9 18:28 Follow up: IV Status: Completed infusion; IV Intake: 100ml j9 17:50 Drug: Potassium Chloride 20 mEq Route: IV; Rate: calculated rate; Site: right hand; j9 19:39 Follow up: Response: No adverse reaction; IV Status: Completed infusion; IV Intake: as6 100ml 18:27 Drug: Magnesium Sulfate 1 grams Route: IVPB; Infused Over: 1 hrs; Site: left [address]; 19:39 Follow up: Response: No adverse reaction; IV Status: Completed infusion; IV Intake: [id number] 19:05 Drug: Ativan (LORazepam) 2 mg Route: IVP; Site: right hand; 9 19:39 Follow up: Response: No adverse reaction as6 19:06 Drug: NS 0.9% 1000 ml Route: IV; Rate: 150 ml/hr; Site: left forearm; 9 19:39 Follow up: IV Status: Infusion continued upon admission as6 Disposition Summary: 06/23/21 17:13 Hospitalization Ordered Provider: Sarmad Zaman Condition: Stable jr8 Problem: new jr8 Symptoms: have improved jr8 Bed/Room Type: Standard jr8 Hospitalization Status: Inpatient Admission(06/24/21 00:25) jr8 Location: Intensive Care Unit(06/25/21 07:54) ja1 Room Assignment: 3-(06/25/21 07:54) ja Diagnosis - Suicide attempt jr8 - Adverse effect of other antipsychotics and neuroleptics, initial encounter jr8 Forms: - Medication Reconciliation Form jr8 - SBAR form jr8 Addendum: 06/27/2021 23:15 Co-signature as Attending Physician, Tim Gross MD I agree with the assessment and r n plan of care. Attestation: The patient's history, exam findings, diagnostics, and a summary of any interventions or procedures was reviewed in detail with Josse KING. Signatures: Dispatcher [employer] EDIL Tim Gross MD MD rn Roszak, Josh, PA PA jr8 Samir Peguero, BEHAVIORAL ASSISTANT-C BEHAVIORAL ASSISTANT-Cla1 Juany Sage, RN RN Antony Buitrago RN RN jl7 Manuelito Escobedo RN RN ja1 Maria Shepherd RN RN jg9 Ronnie Brady RN as6 Corrections: (The following items were deleted from the chart) 06/23 16:23 16:22 SARS-COV-2 RT PCR+[id number].BRZ ordered. [facility] 18:07 17:13 [facility]ation [facility] 18:07 17:13 Telemetry/MedSurg (observation) [facility] 18:07 17:13 [facility] 18:08 18:07 Inpatient Admission jr8 rn 18:08 18:07 Intensive Care Unit jr8 rn 18:08 18:07 jr8 rn 18:33 18:08 Telemetry/MedSurg (observation) rn la1 18:33 18:08 rn la1 18:42 18:33 Intensive Care Unit la1 cg 18:42 18:33 la1 cg 06/24 00:25 06/23 18:08 Observation rn jr8 06/25 07:54 06/23 18:42 [facility] ER HOLD cg ja1 06/25 07:54 06/23 18:42 ERHOLD- cg ja1
--- NOTE | 2021-06-23 17:14 | ER ---
Nurse's Notes [facility] Name: Cecelia Coon Age: 26 yrs Sex: Female : 1995 Arrival Date: 06/23/2021 Time: 15:54 Bed 3 Private MD: Diagnosis: Suicide attempt;Adverse effect of other antipsychotics and neuroleptics, initial encounter Presentation: 06/23 15:54 Chief complaint: EMS states: Toned out by pt for ingestion of 200 mg Seroquel x 30 jl7 pills per pt report. Coronavirus screen: At this time, the client does not indicate any symptoms associated with coronavirus-19. Ebola Screen: No symptoms or risks identified at this time. Initial Sepsis Screen: Does the patient meet any 2 criteria? No. Patient's initial sepsis screen is negative. Does the patient have a suspected source of infection? No. Patient's initial sepsis screen is negative. Risk Assessment: Do you want to hurt yourself or someone else? Patient reports desire/thoughts of hurting themselves or someone else. Provider notified. Onset of symptoms was June 23, 2021. Care prior to arrival: Medication(s) given: Normal saline infusion, 1000 mL, IV initiated. 20 GA, in the left antecubital area. 15:54 Method Of Arrival: EMS: [facility] 15:54 Acuity: MAHENDRA 2 jl7 Triage Assessment: 16:00 General: Appears in no apparent distress. unkempt, Behavior is agitated, anxious. Pain: jg9 Denies pain. 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 - Social history:: Smoking status: Patient reports the use of cigarette tobacco products, smokes one pack cigarettes per day. Screenin:15 Abuse screen: Denies threats or abuse. Denies injuries from another. Nutritional jl7 screening: No deficits noted. Tuberculosis screening: No symptoms or risk factors identified. Fall Risk IV access (20 points). Total Huerta Fall Scale indicates No Risk (0-24 pts). Assessment: 16:00 General: Appears unkempt, Behavior is agitated, anxious. Neuro: Reports feeling jg9 confused. 16:00 Reassessment: Patient sluggish to responding to questions and at times difficult to jg9 understand. Cardiovascular: Rhythm is sinus tachycardia. 16:30 Reassessment: Patient clothing removed and placed in belongings bag, cell phone jg9 also-items secured in locker by security. 18:11 Reassessment: Patient remains tachycardic and lethargic, aroused easily but disoriented jg9 to what is going on around her. 19:36 General: Appears unkempt, Behavior is drowsy. Neuro: Oriented to person. as6 19:38 Cardiovascular: Rhythm is sinus tachycardia. as6 06/24 13:40 Reassessment: Pt sleeping. Oral suction performed to prevent aspiration. Pt tolerated ss7 well. . Psych: 06/23 16:00 [place] Suicide Severity Screening: In the past month, have you wished you were jl7 or wished you could go to sleep and not wake up? Patient responds "yes." "In the past month, have you actually had any thoughts of killing yourself?" Patient responds "yes." Based off the client's response additional Tanner suicide severity screening questions to be further documented on paper forms. "In your lifetime, have you ever done anything, started to do anything, or prepared to do anything to end your life?" Patient responds "yes." Patient reports suicidal intent within 3 past months. Patient reports suicidal intent occurred greater than 3 months prior. Subjective: Patient's mood is sad, Delusions are denied, Hallucinations are denied Having thoughts of suicide. Plan for suicide is Attempted with 30 pills of Seroquel. Objective: Patient is aggressive, challenging, irritable, Speech is loud, pressured, Affect is blunted. Interventions: Removed personal items and placed in bag. Patient placed in hospital gown. Searched person for dangerous items. Belonging list filled out. Safety Checks: Personal items have been removed. Door is open. No visitors are present at this time. Pt denies substance abuse. 22:34 Commitment: camp housekeeper notified of SI. At this time there is no additional staff [facility] available to be a sitter. 22:40 Commitment: Per camp housekeeper they will be sending down a RN from [facility] to [facility] sit with the patient. 06/24 19:41 Commitment: Requested sitter from Education [employer]. Awaiting response to see if anyone tw5 is available. Vital Signs: 06/23 15:54 BP 155 / 140; Pulse 168; Resp 24; Temp 97.8; Pulse Ox 100% ; jl7 16:12 Pulse 119; Resp 22 S; Pulse Ox 100% on R/A; jd3 16:14 Weight 72.57 kg; Height 5 ft. 4 in. (162.56 cm); jl7 17:09 BP 117 / 86; Pulse 131; Resp 15; Pulse Ox 100% ; jl7 17:15 BP 118 / 90; Pulse 123; Resp 18 S; Pulse Ox 100% on R/A; jg9 17:45 BP 90 / 59; Pulse 160; Resp 27 S; Pulse Ox 100% on R/A; jg9 18:00 BP 106 / 71; Pulse 144; Resp 17 S; Pulse Ox 97% on R/A; jg9 18:15 BP 115 / 99; Pulse 160; Resp 14 S; Pulse Ox 100% on R/A; jg9 19:37 BP 99 / 67; Pulse 140; Resp 17 S; Pulse Ox 97% on R/A; as6 16:14 Body Mass Index 27.46 (72.57 kg, 162.56 cm) jl7 ED Course: 15:54 Patient arrived in ED. jl7 15:54 [facility] jr8 15:54 Tim Gross MD is Attending Physician. jr8 15:57 Triage completed. jl7 15:57 Arm band placed on right wrist. jl7 16:14 Initial lab(s) drawn, by ED staff, sent to lab. EKG done, by ED staff, reviewed by Josse KING. Maintain EMS IV. Dressing intact. Good blood return noted. Site clean \\T\\ dry. Gauge \\T\\ site: 20 left ac. 16:28 Kate Adams, VERO is Primary Nurse. ke1 16:29 Police [facility] [employer] called/ spoke with dispatch regarding an CARLO/ per eb dispatch her warehouse shift supervisor is currently working on a warrant but got called to another call and will be here as soon as he can. 16:34 Police [facility] called to come help with patient until [facility] can get here. eb 17:11 Sarmad Zaman MD is Hospitalizing Provider. jr8 17:18 Patient has correct armband on for positive identification. Bed in low position. Call j9 light in reach. Side rails up X 1. 17:54 Inserted saline lock: 20 gauge in left hand, using aseptic technique. ke1 19:40 No provider procedures requiring assistance completed. Patient admitted, IV remains in as6 place. 22:16 Urine Drug Screen Sent. as6 06/25 08:51 Antony Batista, VERO is Primary Nurse. jl7 Administered Medications: 06/23 16:15 Drug: NS 0.9% 1000 ml Route: IV; Rate: 1000 ml; Site: left antecubital; jl7 18:00 Follow up: IV Status: Completed infusion; IV Intake: 1000ml jg9 16:15 Drug: NS 0.9% 1000 ml Route: IV; Rate: 1000 ml; Site: left antecubital; 7 18:30 Follow up: IV Status: Completed infusion; IV Intake: 1000ml j9 16:15 Drug: Ativan (LORazepam) 1 mg Route: IVP; Site: left antecubital; jl7 17:16 Follow up: Response: No adverse reaction; Anxiety decreased j9 18:29 Follow up: Response: RASS: Light sedation (-2) j9 16:45 Drug: Ativan (LORazepam) 1 mg Route: IVP; Site: left antecubital; jl7 17:16 Follow up: Response: No adverse reaction; Anxiety decreased j9 18:29 Follow up: Response: RASS: Light sedation (-2) j9 17:16 Drug: Magnesium Sulfate 1 grams Route: IVPB; Infused Over: 1 hrs; Site: left forearm; jg9 18:28 Follow up: IV Status: Completed infusion; IV Intake: 100ml j9 17:50 Drug: Potassium Chloride 20 mEq Route: IV; Rate: calculated rate; Site: right hand; j9 19:39 Follow up: Response: No adverse reaction; IV Status: Completed infusion; IV Intake: as6 100ml 18:27 Drug: Magnesium Sulfate 1 grams Route: IVPB; Infused Over: 1 hrs; Site: left 9 antecubital; 19:39 Follow up: Response: No adverse reaction; IV Status: Completed infusion; IV Intake: [id number] 19:05 Drug: Ativan (LORazepam) 2 mg Route: IVP; Site: right hand; jg9 19:39 Follow up: Response: No adverse reaction as6 19:06 Drug: NS 0.9% 1000 ml Route: IV; Rate: 150 ml/hr; Site: left forearm; jg9 19:39 Follow up: IV Status: Infusion continued upon admission as6 Intake: 18:00 IV: 1000ml; Total: 1000ml. jg9 18:28 IV: 100ml; Total: 1100ml. jg9 18:30 IV: 1000ml; Total: 2100ml. jg9 19:39 IV: 100ml; Total: 2200ml. as6 19:39 IV: 50ml; Total: 2250ml. as6 Outcome: 17:13 Decision to Hospitalize by Provider. jr8 19:41 Admitted to ER Hold. Please see [facility] for further documentation. as6 19:41 Condition: stable 19:41 Instructed on the need for admit. 06/25 08:52 Patient left the ED. jl7 Signatures: Josse Whatley PA PA jr8 Antony Batista RN RN jl7 Demond Wood RN RN jd3 Ailyn Jain Tiffany tw5 Ronnie Brady RN RN as6 Maria Shepherd RN RN jg9 Kate Adams RN RN ke1 Joan Huitron RN RN ss7 Corrections: (The following items were deleted from the chart) 06/23 16:52 15:15 NS 0.9% 1000 ml IV at 1000 ml in left antecubital jl7 jl7
[2021-06-23] MEDS ORDERED: ALBUTEROL 2.5 MG/3 ML NEB SOL NEB PRN (17:21)
[2021-06-23] MEDS ORDERED: ONDANSETRON 4 MG/2 ML VIAL IV PRN (17:21)
--- NOTE | 2021-06-23 17:21 | P.HP ---
Certification for Inpatient Patient admitted to: Observation With expected LOS: <2 Midnights Patient will require the following post-hospital care: None Practitioner: I am a practitioner with admitting privileges, knowledge of patient current condition, hospital course, and medical plan of care. Services: Services provided to patient in accordance with Admission requirements found in Title 42 Section 412.3 of the Code of Federal Regulations Patient History Date of Service: 06/24/21 Reason for admission: Medication overdose History of Present Illness: Patient with history of depression presented to the hospital after taking over 30 to 40 tablets of Seroquel in a suicidal attempt. She reportedly denies any complaint except for mild nausea. She had denies any headache or dizziness. On arrival she was tachycardic with borderline hypotension but improved with IV fluid boluses. Poison control was discussed with and decision to monitor patient over the next 12 to 24 hours. QTc interval is normal at this time. Her plasma alcohol level was 71. she is unable to give me a ny history now after bring given ativan . she is very drowsy and mutters inappropriately when woken Allergies No Known Allergies Allergy (Verified 06/23/21 18:35) Home medications list reviewed: No - Past Medical/Surgical History Has patient received pneumonia vaccine in the past: No Diabetic: No -: Depression Past Surgical History: Reviewed- Non-Contributory - Social History Smoking Status: Never smoker Smoking therapy provided: No Patient receptive to therapy: No Alcohol use: Yes CD- Drugs: No Caffeine use: No Place of Residence: Home Review of Systems 10-point ROS is otherwise unremarkable Physical Examination - Physical Exam General: In no apparent distress, Confused HEENT: Atraumatic, Normocephalic Neck: 2+ carotid pulse no bruit, JVD not distended Respiratory: Clear to auscultation bilaterally, Normal air movement Cardiovascular: No edema, Normal pulses, Regular rate/rhythm, Normal S1 S2 Gastrointestinal: Normal bowel sounds, Soft and benign, Non-distended, No ascites Musculoskeletal: No clubbing, No swelling Integumentary: No rashes, No breakdown Neurological: Normal speech, Normal strength at 5/5 x4 extr, Sensation intact - Studies Laboratory Data (last 24 hrs) 06/23/21 15:55: PT 11.5, INR 1.00, APTT 27.7 06/23/21 15:55: WBC 6.40, Hgb 13.2, Hct 39.2, Plt Count 290 06/23/21 15:55: Sodium 139, Potassium 3.3 L, BUN 11, Creatinine 0.65, Glucose 126 H, Total Bilirubin 0.7, AST 47 H, ALT 69, Alkaline Phosphatase 81 Assessment and Plan Discharge Plan: Home - Advance Directives Does patient have a Living Will: No Does patient have a Durable POA for Healthcare: No Physician Review: Patient Assessed, Agree with Above Assessment and Plan Physician Review Additional Text: Impression Suicidal attempt Seroquel overdose Hypotension Tachycardia -possible due to alcohol withdrawal symptoms Plan We will admit to telemetry -will bolus 2 L NS now - replete k -follow magnesium Gentle IV fluid Neurochecks as needed We will do one-to-one close monitoring of If EKG and serum glucose normal over the next 24 hours, can plan for discharge to psych unit We will consult [facility] Subcutaneous Lovenox for DVT prophylaxis Ativan as needed for withdrawal symptoms Time Spent Managing Pts Care (In Minutes): 60
[2021-06-23] MEDS ORDERED: POTASSIUM 25 MEQ EFFERV TAB PO ONE (17:24)
[2021-06-23] MEDS ORDERED: LORAZEPAM 1 MG TABLET PO PRN (17:24)
[2021-06-23] MEDS ORDERED: KCL 20 MEQ/100 mL IVPB 100 ML IV ONE (17:42)
[2021-06-23] MEDS ORDERED: NA CHLORIDE 0.9% 2,000 ML ONE (17:51)
[2021-06-23] MEDS: NA CHLORIDE 0.9% 1,000 ML IV SCH (18:00)
[2021-06-23] MEDS: LORazepam 2 MG/ML VIAL IV PRN (21:20)
[2021-06-23 22:14] LABS: Urine Blood Negative (Negative); Urine Glucose Negative (Negative); Urine Protein Negative (Negative); Urine Specific Gravity 1.025 (1.005-1.030)
[2021-06-23 22:29] VITALS: BMI 27.4
[2021-06-23 22:38] LABS: Barbiturates NEGATIVE (NEGATIVE); Benzodiazepines NEGATIVE (NEGATIVE); Cocaine NEGATIVE (NEGATIVE); METHAMPHETAM POSITIVE (NEGATIVE); Methadone NEGATIVE (NEGATIVE); Opiates NEGATIVE (NEGATIVE); Phencyclidine NEGATIVE (NEGATIVE); THC Cannibis POSITIVE (NEGATIVE)
[2021-06-24] MEDS: NA CHLORIDE 0.9% 1,000 ML IV SCH (04:00)
[2021-06-24 04:11] LABS: Absolute Lymphocytes (CBC) 2.2 K/uL (0.7-4.9); Hematocrit 37.3 % (36.0-45.0); Lymphocytes % 37.5 % (15.3-44.8); MPV 8.3 fL (7.6-11.3)
[2021-06-24] MEDS ORDERED: NA CHLORIDE 0.9% 1,000 ML ONE (04:11)
[2021-06-24 04:22] LABS: ALT/SGPT 59 U/L (12-78); AST/SGOT 29 U/L (15-37); Albumin 3.1 g/dL (3.4-5.0); Alkaline Phosphatase 76 U/L (45-117); BUN Blood Urea Nitrogen 7 mg/dL (7-18); Bicarbonate 25 mmol/L (21-32); Bilirubin Total 0.6 mg/dL (0.2-1.0); Glucose Level 108 mg/dL (74-106); Potassium 3.8 mmol/L (3.5-5.1); Protein, Total 6.8 g/dL (6.4-8.2); Sodium Level 144 mmol/L (136-145)
[2021-06-24] MEDS ORDERED: LORazepam 2 MG/ML VIAL ONE (09:00)
[2021-06-24] MEDS: LORazepam 2 MG/ML VIAL IV PRN ×2 (09:03→14:25)
--- NOTE | 2021-06-24 11:55 | P.PN ---
Subjective Date of Service: 06/24/21 Chief Complaint: Medication overdose Subjective: No new changes (Still drowsy, still tachycardic although rate slightly improved On gentle IV fluid Reportedly confused and hallucinating overnight) Physical Examination - Vital Signs Temperature: 98.6 F Blood Pressure: 110/83 Pulse: 138 Respirations: 17 Pulse Ox (%): 93 - Physical Exam General: In no apparent distress, Confused, Delirious HEENT: Atraumatic, Normocephalic Neck: Supple, 2+ carotid pulse no bruit, JVD not distended Respiratory: Clear to auscultation bilaterally, Normal air movement Gastrointestinal: Normal bowel sounds, Soft and benign, Non-distended Musculoskeletal: No clubbing, No swelling Neurological: Other (obtunded) - Studies Laboratory Data (last 24 hrs) 06/23/21 15:55: Magnesium 1.8 06/23/21 15:55: PT 11.5, INR 1.00, APTT 27.7 06/23/21 15:55: WBC 6.40, Hgb 13.2, Hct 39.2, Plt Count 290 06/23/21 15:55: Sodium 139, Potassium 3.3 L, BUN 11, Creatinine 0.65, Glucose 126 H, Total Bilirubin 0.7, AST 47 H, ALT 69, Alkaline Phosphatase 81 Assessment And Plan Physician Review: Patient Assessed, Agree with Above Assessment and Plan Physician Review Additional Text: Impression Suicidal attempt Seroquel overdose Hypotension Tachycardia -possible due to alcohol withdrawal symptoms Plan Continue to monitor Continue gentle IV fluid, will switch to D5 LR Continue telemetry monitoring Continue Ativan as needed as well as neurochecks Possible due to alcohol withdrawal or possible Seroquel overdose induced delirium, continue to monitor closely Continue one-to-one close monitoring of When mental status improve as well as EKG and serum glucose normal over the next 24 hours, can plan for discharge to psych unit We will consult [facility] when medically cleared Subcutaneous Lovenox for DVT prophylaxis Ativan as needed for withdrawal symptoms Time Spent Managing PTS Care (In Minutes): 30
[2021-06-24] MEDS: D5LR 1,000 ML IV SCH ×2 (14:02→20:00)
[2021-06-24] MEDS ORDERED: D5LR 1,000 ML IV ONE ×2 (14:03→21:53)
[2021-06-25] MEDS ORDERED: LORazepam 2 MG/ML VIAL ONE (03:56)
[2021-06-25] MEDS: LORazepam 2 MG/ML VIAL IV PRN ×5 (03:57→18:49)
[2021-06-25] MEDS: D5LR 1,000 ML IV SCH ×3 (04:00→20:00)
[2021-06-25] MEDS ORDERED: D5LR 1,000 ML IV ONE (05:15)
[2021-06-25 05:27] LABS: Absolute Lymphocytes (CBC) 1.8 K/uL (0.7-4.9); Hematocrit 34.9 % (36.0-45.0); Lymphocytes % 14.5 % (15.3-44.8); MPV 7.7 fL (7.6-11.3); RBC Red Blood Cell Count 4.14 M/uL (3.86-4.86)
[2021-06-25 05:56] LABS: ALT/SGPT 44 U/L (12-78); AST/SGOT 19 U/L (15-37); Albumin 2.7 g/dL (3.4-5.0); Alkaline Phosphatase 75 U/L (45-117); BUN Blood Urea Nitrogen 3 mg/dL (7-18); Bicarbonate 23 mmol/L (21-32); Bilirubin Total 0.9 mg/dL (0.2-1.0); Glucose Level 124 mg/dL (74-106); Potassium 3.4 mmol/L (3.5-5.1); Protein, Total 6.4 g/dL (6.4-8.2); Sodium Level 141 mmol/L (136-145)
[2021-06-25] MEDS ORDERED: ALBUTEROL 2.5 MG/3 ML NEB SOL NEB PRN (19:00)
--- NOTE | 2021-06-25 21:36 | P.PN ---
Subjective Date of Service: 06/25/21 Subjective: No new changes, No C/O voiced, Improving Review of Systems 10-point ROS is otherwise unremarkable Physical Examination - Vital Signs Temperature: 99.2 F Blood Pressure: 111/96 Pulse: 113 Respirations: 8 Pulse Ox (%): 97 - Physical Exam General: Alert, In no apparent distress HEENT: Atraumatic, PERRLA, EOMI Neck: Supple, JVD not distended Respiratory: Clear to auscultation bilaterally, Normal air movement Cardiovascular: Regular rate/rhythm, Normal S1 S2 Gastrointestinal: Normal bowel sounds, No tenderness Musculoskeletal: No tenderness Integumentary: No rashes Other Physical/Emotional Findings: Patient with psychosis - Studies Laboratory Data (last 24 hrs) 06/25/21 05:09: Sodium 141, Potassium 3.4 L, BUN 3 L, Creatinine 0.50 L, Glucose 124 H, Total Bilirubin 0.9, AST 19, ALT 44, Alkaline Phosphatase 75 06/25/21 05:09: WBC 12.10 H D, Hgb 11.7 L, Hct 34.9 L, Plt Count 265 Medications List Reviewed: Yes Assessment & Plan - Problems (Diagnosis) (1) Amphetamine abuse Current Visit: Yes Status: Acute (2) MDD (major depressive disorder) Current Visit: Yes Status: Acute (3) Acute psychosis Current Visit: Yes Status: Acute - Plan Plan: 1. Continue with low-dose antipsychotics 2. [facility] consultation 3. Transfer to inpatient psych facility 4. Gentle hydration 5. Diet as tolerated 6. GI DVT prophylaxis Discharge Plan: Home Plan to discharge in: Greater than 2 days - Advance Directives Does patient have a Living Will: No Does patient have a Durable POA for Healthcare: No - Code Status/Comfort Care Code Status Assessed: Yes Code Status: Full Code Physician Review: Patient Assessed, Agree with Above Assessment and Plan Critical Care: No Time Spent Managing PTS Care (In Minutes): 35
[2021-06-25] MEDS ORDERED: HALOPERIDOL LACT 5 MG/ML INJ IV PRN (22:00)
[2021-06-25] MEDS ORDERED: chlordiazePOXIDE HCl 5 MG CAP PO PRN (22:02)
[2021-06-25] MEDS: ZIPRASIDONE 20 MG CAP PO SCH (22:30)
[2021-06-26 06:24] LABS: Absolute Lymphocytes (CBC) 1.9 K/uL (0.7-4.9); Hematocrit 36.9 % (36.0-45.0); Lymphocytes % 19.1 % (15.3-44.8); MPV 7.9 fL (7.6-11.3); RBC Red Blood Cell Count 4.41 M/uL (3.86-4.86)
[2021-06-26 07:04] LABS: ALT/SGPT 38 U/L (12-78); AST/SGOT 13 U/L (15-37); Albumin 2.9 g/dL (3.4-5.0); Alkaline Phosphatase 75 U/L (45-117); BUN Blood Urea Nitrogen 5 mg/dL (7-18); Bicarbonate 24 mmol/L (21-32); Bilirubin Total 0.8 mg/dL (0.2-1.0); Folic Acid, (Folate) 10.6 ng/mL (3.1-17.5); Glucose Level 102 mg/dL (74-106); Magnesium 1.7 mg/dL (1.8-2.4); NT PRO-BNP 70 pg/mL (<125); Potassium 3.2 mmol/L (3.5-5.1); Protein, Total 7.2 g/dL (6.4-8.2); Sodium Level 140 mmol/L (136-145); Thyroid Stimulating Hormone 0.112 uIU/mL (0.360-3.740)
[2021-06-26] MEDS: D5LR 1,000 ML IV SCH ×3 (08:02→20:00)
[2021-06-26] MEDS: ZIPRASIDONE 20 MG CAP PO SCH ×3 (08:03→19:29)
[2021-06-26] MEDS ORDERED: POTASSIUM 25 MEQ EFFERV TAB PO ONE (09:38)
[2021-06-26] MEDS ORDERED: ACETAMINOPHEN 325 MG TABLET PO ONE (11:27)
--- NOTE | 2021-06-26 13:14 | P.PN ---
Date of Service: 06/26/21 Subjective Subjective: No new changes, No C/O voiced, Improving; patient can benefit from [facility] evaluation. We will go ahead and consult and possible transfer to inpatient rehab. Review of Systems 10-point ROS is otherwise unremarkable Physical Examination - Vital Signs Reviewed - Physical Exam General: Alert, In no apparent distress Respiratory: Clear to auscultation bilaterally, Normal air movement Cardiovascular: Regular rate/rhythm, Normal S1 S2 Gastrointestinal: Normal bowel sounds, No tenderness Musculoskeletal: No tenderness Integumentary: No rashes Assessment & Plan - Problems (Diagnosis) (1) Amphetamine abuse Current Visit: Yes Status: Acute (2) MDD (major depressive disorder) Current Visit: Yes Status: Acute (3) Acute psychosis Current Visit: Yes Status: Acute - Plan Continue with plan of care as mentioned below: 1. Continue with low-dose antipsychotics 2. [facility] consultation 3. Transfer to inpatient psych facility 4. Gentle hydration 5. Diet as tolerated 6. GI DVT prophylaxis Discharge Plan: Home Plan to discharge in: Greater than 2 days - Advance Directives Does patient have a Living Will: No Does patient have a Durable POA for Healthcare: No - Code Status/Comfort Care Code Status Assessed: Yes Code Status: Full Code Physician Review: Patient Assessed, Agree with Above Assessment and Plan Critical Care: No Time Spent Managing PTS Care (In Minutes): 35
[2021-06-26] MEDS: LORazepam 2 MG/ML VIAL IV PRN ×2 (16:29→19:30)
[2021-06-26] MEDS: MORPHINE 2 MG/ML SYR IV PRN (19:29)
[2021-06-26] MEDS: chlordiazePOXIDE HCl 5 MG CAP PO SCH (19:29)
[2021-06-27] MEDS: MORPHINE 2 MG/ML SYR IV PRN ×2 (03:13→08:21)
[2021-06-27] MEDS: LORazepam 2 MG/ML VIAL IV PRN ×2 (03:13→12:24)
[2021-06-27] MEDS: D5LR 1,000 ML IV SCH (04:00)
[2021-06-27 05:17] LABS: Absolute Lymphocytes (CBC) 1.4 K/uL (0.7-4.9); Hematocrit 34.4 % (36.0-45.0); Lymphocytes % 18.4 % (15.3-44.8); MPV 8.3 fL (7.6-11.3); RBC Red Blood Cell Count 4.07 M/uL (3.86-4.86)
[2021-06-27 05:43] LABS: ALT/SGPT 27 U/L (12-78); AST/SGOT 14 U/L (15-37); Albumin 2.4 g/dL (3.4-5.0); Alkaline Phosphatase 62 U/L (45-117); BUN Blood Urea Nitrogen 9 mg/dL (7-18); Bicarbonate 26 mmol/L (21-32); Bilirubin Total 0.5 mg/dL (0.2-1.0); Glucose Level 108 mg/dL (74-106); Magnesium 1.8 mg/dL (1.8-2.4); Potassium 3.6 mmol/L (3.5-5.1); Protein, Total 6.2 g/dL (6.4-8.2); Sodium Level 139 mmol/L (136-145)
[2021-06-27] MEDS ORDERED: D5LR 1,000 ML IV SCH (08:00)
[2021-06-27] MEDS: chlordiazePOXIDE HCl 5 MG CAP PO SCH (08:20)
[2021-06-27] MEDS: ZIPRASIDONE 20 MG CAP PO SCH (08:20)
[2021-06-27 12:45] VITALS: TEMP 98.2
[2021-06-27 14:18] VITALS: O2SAT 99
[2021-06-27 15:40] VITALS: BP 105/78
== END 2021-06-27 18:45 | disposition home or self-care (01) | DRG 918 ==
LOC: ER 15:50 → ERHOLD 17:22 → OBSVTOIN 06-25 07:54 → 3RD-ICU 06-25 08:17
PROVIDERS: ADMIT Internal Medicine; ATTEND Hospitalist
DX: T43.592A Poisoning by other antipsychotics and neuroleptics, intentional self-harm, initial encounter (principal); F10.232 Alcohol dependence with withdrawal with perceptual disturbance; R00.0 Tachycardia, unspecified; Y92.009 Unspecified place in unspecified non-institutional (private) residence as the place of occurrence of the external cause; I95.9 Hypotension, unspecified; F10.229 Alcohol dependence with intoxication, unspecified; F15.10 Other stimulant abuse, uncomplicated; Z20.822 Contact with and (suspected) exposure to COVID-19
CPT/HCPCS: 36415; 80048; 80053; 80076; 80307; 80320; 80329; 81003; 82533; 82607; 82746; 82947; 83540; 83735; 83880; 84439; 84443; 85025; 85610; 85730; 93005; 99285; G0378; J2270; J3475; J3480; J7030; J7121; U0003